=== PATIENT | female | born 1995 | race Caucasian/White ===

== ENCOUNTER 2019-08-14 16:00 | Emergency (ER) | payer OTHER ==
[~2019-08-14] VITALS: Ht 162.6 cm; Wt 95.3 kg
[~2019-08-14 16:00] MED LIST: B-12 SC; DITROPAN XL10 MG PO; FOLIC ACID1 MG PO; MACRODANTIN100 MG PO; NEXIUM40 MG; PHENTERMINE HCL15 MG PO; TOPAMAX25 MG PO; ULTRAM50 MG PO
--- OUTSIDE RECORDS SUMMARY | 2019-08-14 16:03 | XMS REPORT ---
Author Author [facility] Address Unknown Phone Unavailable Care Team Providers Care Supervisor [employer] Name Role Phone WILLIAN ESQUIVEL Unavailable Unavailable MITRA MANTILLA Unavailable Unavailable Problems This patient has no known problems. Allergies, Adverse Reactions, Alerts This patient has no known allergies or adverse reactions. Medications This patient has no known medications. Results Test Description Test Time Test Comments Text Results Atomic Results Result Comments CT ABDOMEN/PELVIS WO [place] [address] Patient Name: DONALDO ISBELL MR #: [id number] : 1995 Age/Sex: 22/F Req #: [id number] Adm Physician: Ordered by: WILLIAN ESQUIVEL MD Report #: [id number] Location: CT Room/Bed: Procedure: [id number] CT/CT ABDOMEN/PELVIS WO Exam Date: 09/20/17 Exam Time: 919 REPORT STATUS: Signed PROCEDURE: CT ABDOMEN AND PELVIS WITHOUT CONTRAST TECHNIQUE: The abdomen and pelvis were scanned utilizing a multidetector helical scanner from the diaphragm to the lesser trochanter. No oral or intravenous contrast was administered per renal stone protocol. Coronal and sagittal multiplanar reformations were obtained. COMPARISON: 08/16/2017. INDICATIONS: RENAL STONE FINDINGS: ABSENCE OF INTRAVENOUS CONTRAST DECREASES SENSITIVITY FOR DETECTION OF FOCAL LESIONS AND VASCULAR PATHOLOGY. LOWER THORAX: Normal. HEPATOBILIARY: No focal hepatic lesions. No biliary ductal dilatation. SPLEEN: Calcified granuloma in the upper pole. Small splenule along the anterior splenic margin. No splenomegaly. PANCREAS: No focal masses or ductal dilatation. ADRENALS: No adrenal nodules. KIDNEYS/URETERS: 2 mm nonobstructing left upper pole renal calculus, unchanged. Punctate non-obstructing interpolar right renal calculus is seen on series 3 image 68. Interval treatment or passage of the previously described distal right ureteral calculus from 08/16/2017, with resolution of hydronephrosis. No additional renal, ureteral, or bladder calculi. Previously described hyperattenuating medullary pyramids are less conspicuous on the current study. PELVIC ORGANS/BLADDER: Intrauterine device within an anteflexed uterus. No adnexal mass. Urinary bladder is collapsed and poorly evaluated. PERITONEUM / RETROPERITONEUM: No ascites. No pneumoperitoneum. LYMPH NODES: No pelvic sidewall, retroperitoneal, or mesenteric lymphadenopathy. VESSELS: Limited evaluation without intravenous contrast. The abdominal aorta is non-aneurysmal. GI TRACT: Probable postsurgical changes of the stomach. The large bowel shows no evidence of distention or wall thickening. Gas and fecal material is noted throughout. The appendix is normal. There is no small bowel dilatation to suggest obstruction. BONES AND SOFT TISSUES: Calcified injection granulomata in the subcutaneous fat of the gluteal regions. Otherwise no focal soft tissue abnormalities. No osseous destructive lesions. Probable posttraumatic deformity of the left iliac wing, unchanged. IMPRESSION: Interval treatment or passage of the previously described distal right ureteral calculus with resolution of hydronephrosis. Small bilateral nonobstructing renal calculi as above. Dictated by: Susana Joseph M.D. on 09/20/2017 at 11:15 Electronically approved by: Susana Joseph M.D. on 09/20/2017 at 11:15 Dictated By: SUSANA JOSEPH MD [id number] Transcribed By: STEVIE on 09/20/17 1115 COPY TO: WILLIAN ESQUIVEL MD CT ABDOMEN/PELVIS [place] [address] Patient Name: DONALDO ISBELL MR #: [id number] : 1995 Age/Sex: 22/F Req #: [id number] Adm Physician: Ordered by: OMAR GRIGSBY Report #: [id number] Location: ER Room/Bed: Procedure: [id number] CT/CT ABDOMEN/PELVIS WO Exam Date: 08/16/17 Exam Time: 1715 REPORT STATUS: Signed CT Abdomen and Pelvis without contrast INDICATION: Low back pain, history of renal calculi TECHNIQUE: Thin collimation axial images obtained from the diaphragm to the level of the pubic symphysis without nonionic intravenous contrast. RADIATION DOSE: Total DLP: 741.3 mGy*cm Estimated effective dose: (DLP x 0.015 x size factor) mSv CTDIvol has been reviewed. It is below the limits set by the Radiation Protocol Committee (RPC). COMPARISON: CT abdomen/pelvis 10/17/2016. ABDOMEN FINDINGS: Lung Bases: Clear. The visualized portion of the mediastinum is normal. Liver: Normal in attenuation without mass. Gallbladder: Present and appears normal. No ductal dilatation. Pancreas: Normal attenuation without mass. Spleen: Normal size with a tiny calculus in the upper pole Adrenal Glands: No evidence for mass. Kidneys: Right: Edematous with collecting system dilatation and mild perinephric inflammation. No surrounding fluid collection. No cortical mass. There is mild increased attenuation of the corticomedullary junctions. No discrete intrarenal calculi. Left: 2 mm calculi in the upper pole. There is mild increased attenuation of the corticomedullary junction. No cortical mass or hydronephrosis Lymph Nodes: No lymphadenopathy. Aorta: Normal in diameter. 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 The stomach is not dilated. PELVIS FINDINGS: Bowel: Small Bowel: Normal in caliber with normal wall thickness. Large Bowel: Normal in caliber with normal wall thickness. Appendix: Normal. Bladder: Under distended but otherwise normal. Ureters: The right ureter is dilated to the level of the uterine fundus. A calculus measures 7 mm in the distal ureter. Distal to this, the ureter is collapsed. The left ureter is normal in diameter throughout its course without evidence of calculus. The uterus is present and contains an intrauterine device in appropriate position. There are no adnexal masses. There is a small amount of pelvic ascites. Bones: There are no focal osseous lesions. Soft tissues: A new subcutaneous tissue calcification in the posterior right pelvis measures 3.0 x 1.8 cm and could be the result of injections or trauma. A subcutaneous calcification measuring 13 mm in the posterior right pelvis is increasing in size. IMPRESSION: 1. Obstructing calculus in the distal right ureter. 2. 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 Punctate left intrarenal calculi. 3. Intrauterine device in appropriate position. 4. Small amount of pelvic ascites. 5. No evidence for bowel obstruction or inflammation. Normal appendix. 6. Enlarging subcutaneous calcif ications could be injection granulomas or the result of other injury. Signed by: Dr. Mir Bhagat MD on 08/16/2017 6:09 PM Dictated By: MIR BHAGAT MD 08 Transcribed By: SHANTELL on 08/16/171808 COPY TO: OMAR GRIGSBY
== END 2019-08-14 16:37 | disposition home or self-care (01) ==
LOC: ER 16:00
DX: L03.115 Cellulitis of right lower limb (principal)
CPT/HCPCS: 99283